=== PATIENT | male | born 1995 | race African-American/Black ===

== ENCOUNTER 2019-05-20 19:50 | Emergency (ER) | payer OTHER | END 2019-05-20 21:46 | disposition home or self-care (01) | LOC: JER 19:50 → JERFT 21:46 ==

== ENCOUNTER 2019-05-25 19:34 | Emergency (ER) | payer OTHER | END 2019-05-25 21:19 | disposition home or self-care (01) | LOC: JERFT 19:34 ==

== ENCOUNTER 2019-11-11 20:02 | Emergency (ER) | payer OTHER ==
--- NOTE | 2019-11-11 20:07 | PDOC ---
Rapid Medical Evaluation Time Seen by Provider: 11/11/19 20:05 Medical Evaluation: Allergies Allergy/AdvReac Type Severity Reaction Status Date / Time shellfish derived Allergy Mild Rash Verified 05/25/19 19:51 Sulfa (Sulfonamide Allergy SWELLING, Verified 05/25/19 19:51 Antibiotics) RASH [Sulfa(Sulfonamide Antibiotics)] 11/11/19 20:05 CC: vomiting x3 weeks. Eating bag of "Flaming Hot Cheetos" PE: No focal findings Orders: nothing Patient will proceed to ED for further evaluation. Discharge Disposition - Diagnosis Vomiting - Referrals - Patient Instructions - Post Discharge Activity
[2019-11-11 20:08] VITALS: BP 142/88; PULSE 82; TEMP 98.3; BMI 25.7
[2019-11-11] MEDS ORDERED: ONDANSETRON *ODT* 4 MG TABLET SL ONE (20:23)
--- NOTE | 2019-11-11 20:25 | PDOC ---
History of Present Illness - General Chief Complaint: Nausea/Vomiting Stated Complaint: VOMITTING Time Seen by Provider: 11/11/19 20:05 - History of Present Illness Initial Comments: 11/11/19 20:24 24-year-old male presents for evaluation of nausea and vomiting x1 month. He ran out of his home Zofran. Past History - Past Medical History Allergies/Adverse Reactions: Allergies Allergy/AdvReac Type Severity Reaction Status Date / Time shellfish derived Allergy Mild Rash Verified 11/11/19 20:08 Sulfa (Sulfonamide Allergy SWELLING, Verified 11/11/19 20:08 Antibiotics) RASH [Sulfa(Sulfonamide Antibiotics)] Home Medications: Ambulatory Orders Benztropine Mesylate [Cogentin -] 1 mg PO BID 11/09/15 Haloperidol [Haldol -] 10 mg PO BID 11/09/15 Ibuprofen 800 mg PO PRN PRN 11/09/15 [place] Carbonate [Lithobid] 1,200 mg PO HS 11/09/15 [place] Carbonate [Lithobid] 900 mg PO DAILY 11/09/15 Mag Hydrox/Al Hydrox/Simeth [MAALOX *SUSPENSION* -] 30 ml PO Q6H #1 bottle 11/09/15 Ondansetron [Zofran Odt -] 4 mg SL TID #9 od.tablet 11/09/15 Trazodone HCl 300 mg PO HS 11/09/15 hydrOXYzine HCL [Atarax -] 25 mg PO AM 11/09/15 hydrOXYzine HCL [Atarax -] 50 mg PO HS 11/09/15 Clindamycin [Cleocin -] 300 mg PO Q6HPO #28 capsule 05/20/19 Clindamycin [Cleocin -] 300 mg PO Q6HPO #28 capsule 05/20/19 Pseudoephedrine HCl [Pseudoephedrine ER] 120 mg PO BID #14 tablet.er 05/25/19 Ondansetron [Zofran *Odt*] 4 mg SL BID #14 od.tablet 11/11/19 COPD: No - Immunization History Immunization Up to Date: Yes - Psycho Social/Smoking Cessation Hx Smoking Status: No Smoking History: Never smoked Have you smoked in the past 12 months: No Number of Cigarettes Smoked Daily: 0 Hx Alcohol Use: No Drug/Substance Use Hx: No Review of Systems - Review of Systems ABD/GI: Yes: Nausea, Vomiting. No: Diarrhea *Physical Exam - Vital Signs Last Vital Signs Temp Pulse Resp BP Pulse Ox 98.3 F 82 18 142/88 95 11/11/19 20:05 11/11/19 20:05 11/11/19 20:05 11/11/19 20:05 11/11/19 20:05 - Physical Exam 11/11/19 20:24 GENERAL: The patient is awake, alert, and fully oriented, in no acute distress. HEAD: Normal with no signs of trauma. EYES: sclera anicteric, conjunctiva clear. ENT: Ears normal tympanic membranes normal oropharynx clear uvula midline NECK: Normal range of motion LUNGS: Breath sounds equal, clear to auscultation bilaterally. No wheezes, and no crackles. HEART: S1 and S2 without murmur, rub or gallop. ABDOMEN: Soft, nontender, normoactive bowel sounds. No guarding, no rebound. No masses. EXTREMITIES: Normal range of motion, no edema. No clubbing or cyanosis. No cords, erythema, or tenderness. NEUROLOGICAL: Cranial nerves II through XII grossly intact. PSYCH: Normal mood, normal affect. SKIN: Warm, Dry, normal turgor, no rashes or lesions noted. Medical Decision Making - Medical Decision Making 11/11/19 20:24 Supportive care with Zofran follow-up with gastroenterology. Patient understands. I have reviewed the pathophysiology with the patient. They are in agreement with the treatment plan all questions were answered to their satisfaction. Understanding for follow-up without fail was also conveyed to the patient. Again they are in agreement. Discharge - Discharge Information Problems reviewed: Yes Clinical Impression/Diagnosis: Vomiting Condition: Stable Disposition: HOME - Admission No - Additional Discharge Information Prescriptions: Ondansetron [Zofran *Odt*] 4 mg SL BID #14 od.tablet - Follow up/Referral Referrals: Navid Miranda MD [Primary Care Provider] - Prashant Rodas MD [Non Staff, Medical] - Spike Borjas MD [Staff Physician] - Daniel Mcgarry MD [Staff Physician] - - Patient Discharge Instructions Additional Instructions: Return to the emergency room for worsening symptoms and without fail follow-up with gastroenterology in 1 to 2 days. Please take the antinausea medicine as needed. It is very important for you to follow-up with gastroenterology without fail. - Post Discharge Activity
[2019-11-11] MEDS ORDERED: ONDANSETRON *ODT* 4 MG TABLET ONE (20:29)
== END 2019-11-11 20:30 | disposition home or self-care (01) ==
LOC: JERFT 20:02
DX: R11.2 Nausea with vomiting, unspecified (principal); Z91.013 Allergy to seafood; Z88.2 Allergy status to sulfonamides
CPT/HCPCS: 99283-25; Q0162

== ENCOUNTER 2020-05-10 02:42 | Emergency (ER) | payer OTHER ==
[2020-05-10 03:16] VITALS: BP 146/90; TEMP 97.8; BMI 17.4
[2020-05-10] MEDS ORDERED: ONDANSETRON *ODT* 4 MG TABLET SL ONE (03:33)
[2020-05-10] MEDS ORDERED: ONDANSETRON *ODT* 4 MG TABLET ONE (03:44)
--- NOTE | 2020-05-10 03:54 | PDOC ---
History of Present Illness - General Chief Complaint: Nausea/Vomiting Stated Complaint: VOMITING - History of Present Illness Initial Comments: 05/10/20 04:42 24yo M PMH bipolar disorder type 1, schizoaffective disorder, and intermittent explosive disorder p/w one day of R-sided jaw pain. He was on a walk and yawned when he heard a pop in his right jaw. It immediately started to hurt. It is a deep ache pain exacerbated by touching the R TMJ and chewing. He tried to relieve the pain w/ ibuprofen, but it did not work. He states he is here for pain medicine "to get me through the night." This has never happened before. Denies trauma to the area, hearing changes, recent illness, inserting foreign objects into the ear canal, headaches, or runny nose. Past History - Medical History Allergies/Adverse Reactions: Allergies Allergy/AdvReac Type Severity Reaction Status Date / Time shellfish derived Allergy Mild Rash Verified 05/10/20 03:14 Sulfa (Sulfonamide Allergy SWELLING, Verified 05/10/20 03:14 Antibiotics) RASH [Sulfa(Sulfonamide Antibiotics)] Home Medications: Ambulatory Orders Benztropine Mesylate [Cogentin -] 1 mg PO BID 11/09/15 Haloperidol [Haldol -] 10 mg PO BID 11/09/15 Ibuprofen 800 mg PO PRN PRN 11/09/15 [place] Carbonate [Lithobid] 1,200 mg PO HS 11/09/15 [place] Carbonate [Lithobid] 900 mg PO DAILY 11/09/15 Mag Hydrox/Al Hydrox/Simeth [MAALOX *SUSPENSION* -] 30 ml PO Q6H #1 bottle 11/09/15 Ondansetron [Zofran Odt -] 4 mg SL TID #9 od.tablet 11/09/15 Trazodone HCl 300 mg PO HS 11/09/15 hydrOXYzine HCL [Atarax -] 25 mg PO AM 11/09/15 hydrOXYzine HCL [Atarax -] 50 mg PO HS 11/09/15 Clindamycin [Cleocin -] 300 mg PO Q6HPO #28 capsule 05/20/19 Clindamycin [Cleocin -] 300 mg PO Q6HPO #28 capsule 05/20/19 Pseudoephedrine HCl [Pseudoephedrine ER] 120 mg PO BID #14 tablet.er 05/25/19 Ondansetron [Zofran *Odt*] 4 mg SL BID #14 od.tablet 11/11/19 COPD: No - Immunization History Immunization Up to Date: Yes - Psycho-Social/Smoking History Smoking Status: No Smoking History: Never smoked Have you smoked in the past 12 months: No Number of Cigarettes Smoked Daily: 0 Information on smoking cessation initiated: No - Substance Abuse Hx (Audit-C & DAST Scrn) How often the patient has a drink containing alcohol: Never Score: In Men: 4 or > Positive; In Women: 3 or > Positive: 0 Screen Result (Pos requires Nsg. Audit-10AR): Negative In the last yr the pt used illegal drug/Rx for NonMed reason: No Score: Yes response is considered Positive: 0 Screen Result (Positive result requires Nsg. DAST-10): Negative Review of Systems - Review of Systems Able to Perform ROS?: Yes Constitutional: Yes: Weight Stable. No: Chills, Diaphoresis, Fever, Malaise HEENTM: No: Blurred Vision, Tearing, Ear Pain, Ear Discharge, Nose Pain, Nose Congestion, Hearing Loss, Throat Pain, Throat Swelling, Difficulty Swallowing Respiratory: No: Cough, Shortness of Breath, SOB with Exertion, Productive cough Cardiac (ROS): No: Chest Pain, Syncope ABD/GI: Yes: Nausea, Vomiting. No: Blood Streaked Bowels, Poor Appetite : No: See HPI, Dysuria, Discharge Musculoskeletal: No: Back Pain Integumentary: No: Pallor, Rash Neurological: No: Headache, Weakness Endocrine: No: Unexplained Weight Gain *Physical Exam - Vital Signs Last Vital Signs Temp Pulse Resp BP Pulse Ox 97.8 F 101 H 20 146/90 98 05/10/20 02:45 05/10/20 02:45 05/10/20 02:45 05/10/20 02:45 05/10/20 02:45 - Physical Exam General Appearance: Yes: Nourished, Appropriately Dressed, Disheveled HEENT: positive: Normal ENT Inspection, Normal Voice, TMs Normal, Pharynx Normal, Hearing Grossly Normal, Other (exquisitely tender R TMJ). negative: Scleral Icterus (R), Scleral Icterus (L), Rhinorrhea, Sinus Tenderness Neck: positive: Supple. negative: Tender, Trachea midline, Rigidity Respiratory/Chest: positive: Chest Tender, Lungs Clear, Normal Breath Sounds Cardiovascular: positive: Regular Rhythm, S1, S2, Tachycardia Gastrointestinal/Abdominal: positive: Normal Bowel Sounds, Soft Integumentary: positive: Normal Color, Dry, Warm Discharge - Discharge Information Problems reviewed: Yes Clinical Impression/Diagnosis: TMJ (dislocation of temporomandibular joint) Qualifiers: Encounter type: initial encounter Qualified Code(s): S03.00XA - Dislocation of jaw, unspecified side, initial encounter Vomiting Qualifiers: Vomiting type: unspecified Vomiting Intractability: unspecified Nausea presence: unspecified Qualified Code(s): R11.10 - Vomiting, unspecified TMJ arthralgia Qualifiers: Laterality: right Qualified Code(s): M26.621 - Arthralgia of right temporomandibular joint Condition: Improved Disposition: HOME - Admission No - Follow up/Referral Referrals: Navid Miranda MD [Primary Care Provider] - - Patient Discharge Instructions Patient Printed Discharge Instructions: Temporomandibular Disorder, DI for Temporomandibular Disorder, DI for Vomiting -- Adult Additional Instructions: You came to the ED because your jaw hurt. We examined you and decided that the cause is from your TMJ (the joint that connects your upper jaw bone and lower jaw bone). For that we gave you hot packs and tylenol. Please come back to the ED if you develop any severe symptoms. Please follow up with your primary care doctor tomorrow. - Post Discharge Activity
[2020-05-10] MEDS ORDERED: NAPROXEN 375 MG TABLET PO ONE (04:23)
[2020-05-10 04:38] VITALS: PULSE 104
--- NOTE | 2020-05-10 04:42 | PDOC ---
Attending Attestation - Resident Resident Name: Ronny Dow - ED Attending Attestation I have performed the following: I have examined & evaluated the patient, The case was reviewed & discussed with the resident, I agree w/resident's findings & plan, Exceptions are as noted - HPI HPI: 05/10/20 04:36 24 yo h/o explosive disorder, schizoaffective, bipolar, here with n/v and c/o jaw pain. pt states he has had vomiting for several months after having been admitted to a psychiatric facility. pt denies any f/c no cough. no urinary complaints. last emesis was in taxi on way over here. jaw pain is worse with opening and closing his jaw. has a popping sensation in his right jaw. hurs with chewing. took tylenol - Physicial Exam PE: 05/10/20 04:38 awake alert lungs clear bilat heart rrr no mrg abd soft nt nd ext wwp. right jaw with ttp. no clicking felt. - Medical Decision Making 05/10/20 04:40 pt tolerating po without zofran in ED. no emesis here. pt refusing labs, ( plan to send basic labs lithium level) just wants pain medication and to be dc home. last tylenol was 8 pm. 05/10/20 04:42 05/10/20 04:50 Heart Score/ECG Review #1 General ECG Interpretation: Sinus Rhythm, Normal Intervals, No acute ischemic changes Compared to previous ECG there are: Other (sinus tachycardia .) Discharge - Discharge Information Problems reviewed: Yes Clinical Impression/Diagnosis: TMJ (dislocation of temporomandibular joint), Vomiting Condition: Improved Disposition: HOME - Admission No - Follow up/Referral Referrals: Navid Miranda MD [Primary Care Provider] - - Patient Discharge Instructions - Post Discharge Activity
[2020-05-10] MEDS ORDERED: ACETAMINOPHEN 325 MG TABLET (FP) PO ONE (04:50)
[2020-05-10] MEDS ORDERED: ACETAMINOPHEN 325 MG TABLET (FP) ONE (04:52)
--- NOTE | 2020-05-10 11:16 | EKG ---
Test Reason : Blood Pressure : / mmHG Vent. Rate : 109 BPM Atrial Rate : 109 BPM P-R Int : 192 ms QRS Dur : 100 ms QT Int : 324 ms P-R-T Axes : 056 026 035 degrees QTc Int : 436 ms SINUS TACHYCARDIA NONSPECIFIC T WAVE ABNORMALITY ABNORMAL ECG WHEN COMPARED WITH ECG OF 14-AUG-2009 13:22, VENT. RATE HAS INCREASED Confirmed by MEET CARDONA MD ([id number]) on 05/10/2020 11:15:36 AM Referred By: Confirmed By:MEET CARDONA MD
== END 2020-05-10 05:16 | disposition home or self-care (01) ==
LOC: JER 02:42
DX: R11.10 Vomiting, unspecified (principal); S03.00XA Dislocation of jaw, unspecified side, initial encounter; M26.621 Arthralgia of right temporomandibular joint
CPT/HCPCS: 93005; 93010; 99285-25; Q0162

== ENCOUNTER 2020-07-30 22:56 | Emergency (ER) | payer OTHER ==
[2020-07-30 23:03] VITALS: TEMP 98; BMI 32.1
[2020-07-30] MEDS ORDERED: SODIUM CHLORIDE 1,000 ML IV STA (23:27)
[2020-07-30] MEDS ORDERED: ONDANSETRON 4 MG/2 ML VIAL IVPUSH ONE (23:28)
[2020-07-30] MEDS ORDERED: MAG HYDROX/AL HYDROX/SIMETH -MYLANTA- ORAL SUSPENSION PO ONE (23:28)
[2020-07-30] MEDS ORDERED: PANTOPRAZOLE SODIUM 40 MG VIAL IVPUSH ONE (23:29)
[2020-07-30] MEDS ORDERED: PANTOPRAZOLE SODIUM 40 MG/100 ML BAG IVPB ONE (23:35)
[2020-07-30] MEDS ORDERED: MAG HYDROX/AL HYDROX/SIMETH 30 ML UNIT-DOSE CUP ONE (23:35)
[2020-07-30 23:46] LABS: HEMATOCRIT 41.1 % (35.4-49); HEMOGLOBIN 12.8 GM/dL (11.7-16.9); MCHC 31.2 g/dl (32.0-35.9); MEAN CELL VOLUME 73.8 fl (80-96); MEAN PLT VOLUME 9.4 fl (7.5-11.1); PLATELET COUNT 266 K/MM3 (134-434); RBC 5.57 M/mm3 (4.00-5.60); WHITE BLOOD COUNT 7.8 K/mm3 (4.0-10.0)
[2020-07-31 00:07] LABS: CHLORIDE 103 mmol/L (98-107); POTASSIUM 3.7 mmol/L (3.5-5.1); SODIUM 138 mmol/L (136-145)
[2020-07-31 00:10] LABS: ALBUMIN 3.8 g/dl (3.4-5.0); ANION GAP 6 MMOL/L (8-16); BLOOD UREA NITROGEN 10.7 mg/dL (7-18); CALCIUM 9.8 mg/dL (8.5-10.1); CO2 29 mmol/L (21-32); GLUCOSE,RANDOM 99 mg/dL (74-106)
[2020-07-31 00:13] LABS: CREATININE 1.1 mg/dL (0.55-1.3); SGOT/AST 33 U/L (15-37); SGPT/ALT 30 U/L (13-61)
[2020-07-31 00:14] VITALS: BP 111/79; PULSE 94
[2020-07-31 00:15] LABS: BILIRUBIN,TOTAL 0.2 mg/dL (0.2-1); TOT PROT 8.2 g/dl (6.4-8.2)
[2020-07-31 00:16] LABS: ALK PHOS 91 U/L (45-117)
== END 2020-07-31 00:58 | disposition home or self-care (01) ==
LOC: JER 22:56
PROC: 3E033GC Introduction of Other Therapeutic Substance into Peripheral Vein, Percutaneous Approach (ICD-10-PCS; principal; 2020-07-30)
PROC: 3E033GC Introduction of Other Therapeutic Substance into Peripheral Vein, Percutaneous Approach (ICD-10-PCS; 2020-07-30)
PROC: 3E0337Z Introduction of Electrolytic and Water Balance Substance into Peripheral Vein, Percutaneous Approach (ICD-10-PCS; 2020-07-30)
DX: R10.9 Unspecified abdominal pain (principal)
CPT/HCPCS: 36415; 80053; 82550; 82553; 84484; 85027; 93005; 93010; 99284-25

== ENCOUNTER 2020-07-31 20:59 | Emergency (ER) | payer OTHER ==
[2020-07-31 21:12] VITALS: TEMP 97.5; BMI 32.1
[2020-07-31] MEDS ORDERED: FAMOTIDINE 20 MG/50 ML IVPB 20 MG/50 ML MG IVPB ONE ×2 (22:04→22:12)
[2020-07-31] MEDS ORDERED: LACTATED RINGERS SOLUTION 1000 ML INFUS.BAG IV ONE (22:07)
[2020-07-31 22:19] LABS: BASO % 0.7 % (0-2.0); EOS % 3.5 % (0-4.5); HEMATOCRIT 41.4 % (35.4-49); HEMOGLOBIN 12.9 GM/dL (11.7-16.9); LYMPH % 20.5 % (8-40); MCH 22.8 pg (25.7-33.7); MCHC 31.1 g/dl (32.0-35.9); MEAN CELL VOLUME 73.4 fl (80-96); MEAN PLT VOLUME 9.8 fl (7.5-11.1); MONO % 15.1 % (3.8-10.2); NEUT % 60.2 % (42.8-82.8); PLATELET COUNT 285 K/MM3 (134-434); RBC 5.64 M/mm3 (4.00-5.60); RDW 14.9 % (11.9-15.9); WHITE BLOOD COUNT 8.5 K/mm3 (4.0-10.0)
[2020-07-31 22:34] LABS: CHLORIDE 106 mmol/L (98-107); POTASSIUM 4.2 mmol/L (3.5-5.1); SODIUM 139 mmol/L (136-145)
[2020-07-31 22:37] LABS: ANION GAP 5 MMOL/L (8-16); BLOOD UREA NITROGEN 9.2 mg/dL (7-18); CALCIUM 10.1 mg/dL (8.5-10.1); CO2 28 mmol/L (21-32); GLUCOSE,RANDOM 98 mg/dL (74-106); LIPASE 84 U/L (73-393); MAGNESIUM 2.1 mg/dL (1.8-2.4)
[2020-07-31 22:38] LABS: ALBUMIN 3.7 g/dl (3.4-5.0)
[2020-07-31 22:40] LABS: CREATININE 1.2 mg/dL (0.55-1.3); SGOT/AST 30 U/L (15-37); SGPT/ALT 30 U/L (13-61)
[2020-07-31 22:42] LABS: BILIRUBIN,TOTAL 0.2 mg/dL (0.2-1); TOT PROT 8.2 g/dl (6.4-8.2)
[2020-07-31 22:43] LABS: ALK PHOS 93 U/L (45-117)
[2020-07-31 23:40] VITALS: BP 149/103; PULSE 92
== END 2020-08-01 00:29 | disposition home or self-care (01) ==
LOC: SUPCPDRO 20:59 → JER 20:59
PROC: 3E033NZ Introduction of Analgesics, Hypnotics, Sedatives into Peripheral Vein, Percutaneous Approach (ICD-10-PCS; principal; 2020-07-31)
DX: R11.10 Vomiting, unspecified (principal)
CPT/HCPCS: 36415; 71046-TC-FY; 74019-TC-FY; 80053; 80164; 80178; 82550; 82553; 83690; 83735; 84100; 84484; 85025; 93005; 93010; 99285-25